=== PATIENT | female | born 1995 | race American Indian/Alaskan Native ===

== ENCOUNTER 2019-06-28 19:41 | Emergency (ER) | payer MEDICAID ==
[2019-06-28 20:52] VITALS: BP 149/74
--- NOTE | 2019-06-28 20:58 | Emergency Department Report ---
Blank Doc - Documentation Documentation: 24-year-old female that presents with pelvic pain and some vaginal bleeding. Denies knowing if . This initial assessment/diagnostic orders/clinical plan/treatment(s) is/are subject to change based on patient's health status, clinical progression and re- assessment by fellow clinical providers in the ED. Further treatment and workup at subsequent clinical providers discretion. Patient/guardians urged not to elope from the ED as their condition may be serious if not clinically assessed and managed. Initial orders include: 1- Patient sent to [facility] for further evaluation and treatment 2- UA
[2019-06-28] MEDS ORDERED: ACETAMINOPHEN 500 MG TAB PO ONE (22:15)
[2019-06-28 23:01] LABS: Basophils # (Auto) 0.1 K/mm3 (0.0-0.1); Eosinophils # (Auto) 0.2 K/mm3 (0.0-0.4); Eosinophils % (Auto) 1.8 % (0.0-4.3); Monocytes # (Auto) 0.8 K/mm3 (0.0-0.8); Monocytes % (Auto) 9.3 % (0.0-7.3)
[2019-06-28 23:09] LABS: Red Blood Count 4.52 M/mm3 (3.65-5.03)
[2019-06-28 23:10] LABS: Basophils % (Auto) 0.7 % (0.0-1.8); Hematocrit 33.1 % (30.3-42.9); Hemoglobin 10.2 gm/dl (10.1-14.3); Lymphocytes # (Auto) 3.1 K/mm3 (1.2-5.4); Lymphocytes % (Auto) 34.6 % (13.4-35.0); Mean Corpuscular HGB Conc 31 % (30-34); Mean Corpuscular Volume 73 fl (79-97); Platelet Count 275 K/mm3 (140-440); Red Cell Distribution Width 17.7 % (13.2-15.2)
[2019-06-28 23:13] LABS: Alanine Aminotransferase 17 units/L (7-56); Albumin 3.9 g/dL (3.9-5); BUN/Creatinine Ratio 11; Blood Urea Nitrogen 8 mg/dL (7-17); Calcium 9.4 mg/dL (8.4-10.2); Hemolysis Index 20
[2019-06-29 00:40] LABS: Bilirubin,Urine NEG (Negative); Blood,Urine MOD (Negative); Color,Urine Yellow (Yellow); Mucus,Urine FEW /HPF; Protein,Urine <15 mg/dL mg/dL (Negative); Urobilinogen,Urine < 2.0 mg/dL (<2.0)
[2019-06-29 00:47] LABS: HCG Qualitative,Urine Negative (Negative)
--- NOTE | 2019-06-29 00:54 | Emergency Department Report ---
ED Female HPI - General Chief complaint: Abdominal Pain Stated complaint: SHARP ABDOMINAL PAIN Time Seen by Provider: 06/28/19 20:57 Source: patient Mode of arrival: Ambulatory Limitations: No Limitations - History of Present Illness Initial comments: Patient is A0 24-year-old -[place] female with no past medical history who presents to the ED with complaint of acute onset persistent intermittent pelvic pain that radiates to the lower back with intermittent vaginal spotting for the last 2 weeks, with nausea and vomiting. Patient states that she does not usually have regular menstrual cycle, and that the last menstrual cycle was May 05, 2019 and that since then she has not generally had menstrual cycle until about 2 days ago when she had a single episode of vaginal spotting and that even at that time it was light. Patient states that she has performed multiple tests at home all of which have been negative. Patient denies fever, chills, vaginal discharge, diarrhea, dizziness, syncope, chest pain, shortness of breath, change in vision, back pain, dysuria, urinary frequency and urgency or cough and sore throat. MD Complaint: pelvic pain (pressure) -: Sudden Location: suprapubic Severity: moderate Severity scale (0 -10): 2 Quality: cramping, dull Consistency: intermittent Improves with: none Worsens with: none Are you Now?: No Associated Symptoms: denies other symptoms, vaginal bleeding, abdominal pain, nausea/vomiting. denies: vaginal discharge, fever/chills, headaches, dysuria, hematuria, seizure, shortness of breath, syncope, weakness, other - Related Data Sexually active: Yes : 1 Para: 1 A: 1 Previous Rx's Medication Instructions Recorded Last Taken Type Pnv,Calcium 72/Iron/Folic Acid 1 each PO QDAY #30 tablet 04/02/15 05/14/15 Rx [ Vitamin with Low Iron] Miconazole Nitrate [Monistat 7] 44 gm VG QHS #7 cmb.pf.crm 05/14/15 Unknown Rx Cyclobenzaprine [Flexeril] 10 mg PO Q8H PRN #15 tablet 06/29/19 Unknown Rx Ibuprofen [Motrin] 800 mg PO Q8HR PRN #24 tablet 06/29/19 Unknown Rx Ondansetron [Zofran Odt] 4 mg PO Q6HR PRN #15 tab.rapdis 06/29/19 Unknown Rx Allergies Allergy/AdvReac Type Severity Reaction Status Date / Time No Known Allergies Allergy Verified 11/16/15 09:55 ED Review of Systems ROS: Stated complaint: SHARP ABDOMINAL PAIN Other details as noted in HPI Constitutional: denies: chills, fever Eyes: denies: eye pain, eye discharge, vision change ENT: denies: ear pain, throat pain Respiratory: denies: cough, shortness of breath, wheezing Cardiovascular: denies: chest pain, palpitations Endocrine: no symptoms reported Gastrointestinal: abdominal pain, nausea, vomiting. denies: diarrhea Genitourinary: hematuria, abnormal menses (intermittent vaginal spotting). denies: urgency, dysuria, frequency, discharge Musculoskeletal: back pain, arthralgia. denies: joint swelling Skin: denies: rash, lesions Neurological: denies: headache, weakness, paresthesias Psychiatric: denies: anxiety, depression Hematological/Lymphatic: denies: easy bleeding, easy bruising ED Past Medical Hx - Past Medical History Previous Medical History?: No Hx Hypertension: No Hx Heart Attack/AMI: No Hx Diabetes: No Hx Deep Vein Thrombosis: No Hx Renal Disease: No Hx Sickle Cell Disease: No Hx Seizures: No Hx Asthma: No Hx COPD: No Hx HIV: No - Surgical History Past Surgical History?: No - Social History Smoking Status: Never Smoker Substance Use Type: None - Medications Home Medications: Home Medications Medication Instructions Recorded Confirmed Last Taken Type Pnv,Calcium 72/Iron/Folic Acid 1 each PO QDAY #30 tablet 04/02/15 11/18/15 05/14/15 Rx [ Vitamin with Low Iron] Miconazole Nitrate [Monistat 7] 44 gm VG QHS #7 cmb.pf.crm 05/14/15 11/18/15 Unknown Rx Cyclobenzaprine [Flexeril] 10 mg PO Q8H PRN #15 tablet 06/29/19 Unknown Rx Ibuprofen [Motrin] 800 mg PO Q8HR PRN #24 tablet 06/29/19 Unknown Rx Ondansetron [Zofran Odt] 4 mg PO Q6HR PRN #15 tab.rapdis 06/29/19 Unknown Rx ED Physical Exam - General Limitations: No Limitations General appearance: alert, in no apparent distress - Head Head exam: Present: atraumatic, normocephalic, normal inspection - Eye Eye exam: Present: normal appearance, PERRL, EOMI Pupils: Present: normal accommodation - ENT ENT exam: Present: normal exam, normal orophraynx, mucous membranes moist, TM's normal bilaterally, normal external ear exam - Neck Neck exam: Present: normal inspection, full ROM. Absent: tenderness, lymphadenopathy - Respiratory Respiratory exam: Present: normal lung sounds bilaterally. Absent: respiratory distress, wheezes, rales, chest wall tenderness, accessory muscle use, decreased breath sounds - Cardiovascular Cardiovascular Exam: Present: regular rate, normal rhythm, normal heart sounds. Absent: systolic murmur, diastolic murmur, rubs, gallop - GI/Abdominal GI/Abdominal exam: Present: soft, normal bowel sounds. Absent: tenderness, guarding, hyperactive bowel sounds, hypoactive bowel sounds - Extremities Exam Extremities exam: Present: normal inspection, full ROM, normal capillary refill - Back Exam Back exam: Present: normal inspection, full ROM. Absent: tenderness, CVA t enderness (R), CVA tenderness (L), muscle spasm, paraspinal tenderness, vertebral tenderness - Neurological Exam Neurological exam: Present: alert, oriented X3, CN II-XII intact, normal gait - Psychiatric Psychiatric exam: Present: normal affect, normal mood - Skin Skin exam: Present: warm, dry, intact, normal color. Absent: rash ED Course Vital Signs 06/28/19 06/28/19 06/28/19 19:56 20:57 22:21 Temperature 98.8 F 98.8 F Pulse Rate 81 83 Respiratory 18 18 18 Rate Blood Pressure 149/74 149/74 O2 Sat by Pulse 97 98 Oximetry ED Medical Decision Making - Lab Data Result diagrams: 06/28/19 22:25 06/28/19 22:25 - Medical Decision Making This is a 24-year-old female who presented to the ED with intermittent lower abdominal pain that radiates to the lower back with vaginal spotting for 2 weeks intermittently. In the ED, patient is alert and oriented x3 and is not in any distress with normal vital signs, playing with her 3-year-old daughter in the room in no distress. Lab test results were reviewed and are all nonactionable including urinalysis. Patient was treated for pain with Tylenol in the ED and on reevaluation, patient's pain is well controlled with medications. Patient symptoms are likely due to dysmenorrhea or muscle spasms or cramps of lower abdomen and lower back given the irregular nature of her menstrual cycle. Patient was discharged home on medications and advised follow-up with her [employer] physician or primary care physician in 7 to 10 days for reevaluation or return to the ED immediately if symptoms get worse. - Differential Diagnosis ; UTI; Ovarian cyst; Muscle spasm; dysmenorrhea; Fibroids Critical care attestation.: If time is entered above; I have spent that time in minutes in the direct care o f this critically ill patient, excluding procedure time. ED Disposition Clinical Impression: Spasm of muscle of lower back, Nausea and vomiting in adult, Strain of muscle, fascia and tendon of lower back, initial encounter Abdominal pain Qualifiers: Abdominal location: lower abdomen, unspecified Qualified Code(s): R10.30 - Lower abdominal pain, unspecified Disposition: TO HOME OR SELFCARE Is pt being admited?: No Does the pt Need Aspirin: No Condition: Stable Instructions: Abdominal Pain (ED), Muscle Spasm (ED), Muscle Strain (ED), Acute Nausea and Vomiting (ED) Additional Instructions: All lab test results are unremarkable. Therefore take medications as needed for pain in your lower back and follow-up with the primary care physician in 7 to 10 days for reevaluation or return to the ED immediately if symptoms get worse. Prescriptions: Cyclobenzaprine [Flexeril] 10 mg PO Q8H PRN #15 tablet PRN Reason: Muscle Spasm Ibuprofen [Motrin] 800 mg PO Q8HR PRN #24 tablet PRN Reason: Pain , Severe (7-10) Ondansetron [Zofran Odt] 4 mg PO Q6HR PRN #15 tab.rapdis PRN Reason: Nausea Referrals: [facility] [Outside] - 3-5 Days Forms: Work/School Release Form(ED) Time of Disposition: 00:51 Print Language: AZERI
== END 2019-06-29 01:12 | disposition home or self-care (01) ==
LOC: ED 19:41
DX: S39.012A Strain of muscle, fascia and tendon of lower back, initial encounter (principal); R11.2 Nausea with vomiting, unspecified; R10.30 Lower abdominal pain, unspecified; M62.830 Muscle spasm of back; Z79.899 Other long term (current) drug therapy; X58.XXXA Exposure to other specified factors, initial encounter; Y93.89 Activity, other specified; Y92.89 Other specified places as the place of occurrence of the external cause; Y99.8 Other external cause status
CPT/HCPCS: 36415; 80053; 81001; 81025; 83690; 85025; 99283